=== PATIENT | female | born 1935 | race African-American/Black ===

== ENCOUNTER 2018-09-27 13:04 | Emergency (ER) | payer BC ==
[~2018-09-27] VITALS: Ht 165.1 cm; Wt 72.0 kg
[~2018-09-27 13:04] MED LIST: AMLO2.5T45 PO; CALC667C4 PO; HYDR12.529 PO; LOSA25TA12 PO; LOVA20TA2 PO; MULT-1146 PO; OMEG1CAP17 PO; POTA10CA42 PO
[2018-09-27] MEDS ORDERED: SODIUM CHLORIDE 0.9% 1,000 ML IV ONE (13:32)
[2018-09-27] MEDS ORDERED: ONDANSETRON HCL 4MG/2ML INJ IV ONE (13:45)
[2018-09-27 14:05] LABS: BASOPHILS % 0.5 % (0.0-2.0); EOSINOPHILS % 1.5 % (0.0-5.0); HEMATOCRIT. 34.3 % (36.0-48.0); LYMPHOCYTES % 39.2 % (20.0-50.0); MEAN CORPUSCULAR HEMOGLOBIN 30.2 pg (28.0-32.0); MEAN CORPUSCULAR VOLUME 93.8 fL (81.0-99.0); MEAN PLATELET VOLUME 9.1 fl (7.4-10.4); MONOCYTES % 7.5 % (2.0-8.0); NEUTROPHILS % 51.3 % (40.0-76.0); PLATELET 234 x1000/uL (130-400); RED BLOOD CELL COUNT 3.65 mill/uL (4.2-5.4); RED CELL DISTRIBUTION WIDTH 16.6 % (11.6-14.6)
[2018-09-27 14:12] LABS: CHLORIDE 105 mEq/L (98-107)
[2018-09-27 14:13] LABS: PROTHROMBIN TIME 10.5 sec (9.1-11.1)
[2018-09-27] MEDS ORDERED: ASPIRIN 325MG EC TABLET PO ONE (15:30)
[2018-09-27 17:35] LABS: CLARITY URINE CLEAR (CLEAR); COLOR URINE YELLOW (YELLOW); KETONES URINE TRACE (NEGATIVE); LEUKOCYTE ESTERASE URINE 1+ (NEGATIVE); NITRITE URINE NEGATIVE (NEGATIVE); OCCULT BLOOD URINE NEGATIVE (NEGATIVE); PROTEIN URINE NEGATIVE (NEGATIVE); SPECIFIC GRAVITY URINE 1.014 (1.005-1.030); UROBILINOGEN URINE 0.2 E.U./dL (0.2-1.0)
[2018-09-27] MEDS ORDERED: LEVOFLOXACIN 500MG PREMIX 100 ML IV ONE (18:45)
[2018-09-27] MEDS ORDERED: LEVOFLOXACIN 500MG PREMIX 100 ML IV SCH (19:00)
[2018-09-27] MEDS ORDERED: SODIUM CHLORIDE 0.45% 1,000 ML IV SCH (19:00)
[2018-09-27 21:07] VITALS: BP 112/58
== END 2018-09-27 20:37 | disposition short-term general hospital (02) ==
LOC: ER 13:04 → EDBEDREQ 15:38 → EDBEDREQTM 15:38 → CANBEDREQ 16:58 → ER 20:37
DX: G90.8 Other disorders of autonomic nervous system (principal); R07.89 Other chest pain; I10 Essential (primary) hypertension; E86.0 Dehydration; N17.9 Acute kidney failure, unspecified; R73.9 Hyperglycemia, unspecified; K59.00 Constipation, unspecified
CPT/HCPCS: 36415; 70450; 70551; 71045; 80053; 81003; 82962; 83605; 83690; 84484; 85025; 85379; 85610; 87086; 87804; 93005; 96361; 96365; 96375; 99285; J1956; J2405; J7030

== ENCOUNTER 2022-09-14 11:20 | Inpatient (IN) | payer BC, MEDICARE ==
[~2022-09-14] VITALS: Ht 167.6 cm; Wt 125.0 kg
[~2022-09-14 11:20] MED LIST changes: +CALCIUM CHLORIDE 1GM/10ML SYR IV ONE; +EPINEPHRINE 0.1MG/ML (1:10,000) 10ML SYR ONE; -LOSA25TA12 PO; +LOSA25TA26 PO; +SODIUM BICARBONATE 8.4% 1 MEQ/ML 50ML SYR IV ONE
[2022-09-14] MEDS ORDERED: NOREPINEPHRINE 8 MG in DEXT 5% WATER 242 ML IV STA ×2 (12:13→12:21)
[2022-09-14 12:32] LABS: BG BASE EXCESS -7.5 mmol/L (-2.0-2.0); BG CARBOXYHEMOGLOBIN 0.7 % (0.5-1.5); BG DEOXYHEMOGLOBIN 1.6 % (0.0-5.0); BG HCO3 ACT 16.7 mmol/L (22.0-26.0); BG METHEMOGLOBIN 0.3 % (0.0-1.5); BG OXYGEN SATURATION 98.4 % (92.0-98.5); BG OXYHEMOGLOBIN 97.4 % (94.0-97.0); BG PCO2 28.4 mmHg (35.0-45.0); BG PH 7.386 (7.350-7.450); BG PO2 116.1 mmHg (75.0-100.0); BG SAMPLE SITE RIGHT BRACHIAL; BG TOTAL HEMOGLOBIN 7.3 g/dL (12.0-18.0); BG VENT MODE MASK - NRB
[2022-09-14] MEDS ORDERED: SODIUM CHLORIDE 0.9% 1,000 ML IV ONE (13:00)
[2022-09-14] MEDS ORDERED: DOPAMINE 400MG/250ML PREMIX 250 ML IV SCH (13:33)
[2022-09-14 13:44] LABS: HEMATOCRIT. 24.8 % (36.0-48.0); HEMOGLOBIN. 7.4 g/dL (12.0-16.0); MEAN CORPUSCULAR HEMOGLOBIN 29.1 pg (28.0-32.0); MEAN CORPUSCULAR VOLUME 96.7 fL (81.0-99.0); MEAN PLATELET VOLUME 7.8 fl (7.4-10.4); PLATELET 144 x1000/uL (130-400); RED BLOOD CELL COUNT 2.56 mill/uL (4.2-5.4); RED CELL DISTRIBUTION WIDTH 17.6 % (11.6-14.6)
[2022-09-14 13:59] LABS: CHLORIDE 99 mEq/L (98-107)
[2022-09-14 14:07] LABS: NUCLEATED RED BLOOD CELLS 4 /100 WBC
[2022-09-14 14:08] LABS: PLATELET ESTIMATE NORMAL
[2022-09-14] MEDS ORDERED: VANCOMYCIN 1G PREMIX 200 ML IV ONE (14:15)
[2022-09-14] MEDS ORDERED: PIPERACILLIN/TAZ 3.375G PREMIX 50 ML IV ONE (14:15)
[2022-09-14 14:22] LABS: INR 1.2; PROTHROMBIN TIME 12.6 sec (9.6-11.0)
[2022-09-14 16:45] VITALS: BP 70/38
[2022-09-14] MEDS ORDERED: MORPHINE SULFATE 2 MG/ML CPJ (NOT FOR IM USE) IV ONE (16:45)
[2022-09-14] MEDS ORDERED: DOPAMINE 400MG/250ML PREMIX 250 ML IV STA (17:33)
[2022-09-14] MEDS ORDERED: NOREPINEPHRINE 8 MG in DEXT 5% WATER 242 ML IV PRN (17:45)
== END 2022-09-14 22:00 | DRG 871 ==
LOC: ER 11:20 → EDBEDREQTM 14:23 → EDBEDREQ 14:23 → EDBEDREQSVC 14:23 → CVICU 15:14 → EDBEDREQ 15:19 → EDBEDREQTM 15:19
PROVIDERS: ADMIT Internal Medicine; ATTEND Internal Medicine
PROC: 02HV33Z Insertion of Infusion Device into Superior Vena Cava, Percutaneous Approach (ICD-10-PCS; principal; 2022-09-14)
PROC: B548ZZA Ultrasonography of Superior Vena Cava, Guidance (ICD-10-PCS; 2022-09-14)
PROC: 30233N1 Transfusion of Nonautologous Red Blood Cells into Peripheral Vein, Percutaneous Approach (ICD-10-PCS; 2022-09-14)
PROC: 0BH17EZ Insertion of Endotracheal Airway into Trachea, Via Natural or Artificial Opening (ICD-10-PCS; 2022-09-14)
PROC: 5A1935Z Respiratory Ventilation, Less than 24 Consecutive Hours (ICD-10-PCS; 2022-09-14)
PROC: 5A12012 Performance of Cardiac Output, Single, Manual (ICD-10-PCS; 2022-09-14)
DX: A41.9 Sepsis, unspecified organism (principal); N18.6 End stage renal disease; R65.21 Severe sepsis with septic shock; C90.00 Multiple myeloma not having achieved remission; E87.20 Acidosis, unspecified; I13.2 Hypertensive heart and chronic kidney disease with heart failure and with stage 5 chronic kidney disease, or end stage renal disease; I48.92 Unspecified atrial flutter; N17.9 Acute kidney failure, unspecified; D68.62 Lupus anticoagulant syndrome; L97.329 Non-pressure chronic ulcer of left ankle with unspecified severity; I46.9 Cardiac arrest, cause unspecified; I50.9 Heart failure, unspecified; E78.00 Pure hypercholesterolemia, unspecified; E11.22 Type 2 diabetes mellitus with diabetic chronic kidney disease; D63.1 Anemia in chronic kidney disease; G89.29 Other chronic pain; H91.90 Unspecified hearing loss, unspecified ear; Z66 Do not resuscitate; Z82.49 Family history of ischemic heart disease and other diseases of the circulatory system; Z88.0 Allergy status to penicillin; Z99.2 Dependence on renal dialysis; Z88.2 Allergy status to sulfonamides; Z79.4 Long term (current) use of insulin
CPT/HCPCS: 31500; 36415; 36573; 36600; 71045; 80053; 82270; 82375; 82805; 83605; 83880; 84145; 84484; 85025; 86850; 86900; 86920; 93005; 94002; 99291; C1725; C1760; J1265; J2270; J2543; J3490; J7030; J7060; P9016